=== PATIENT | female | born 1970 | race Two or more races ===

== ENCOUNTER 2022-01-12 08:19 | Emergency (ER) | payer OTHER ==
[~2022-01-12] VITALS: Ht 170.2 cm; Wt 85.3 kg
== END 2022-01-12 16:21 | disposition home or self-care (01) ==
LOC: ER 08:19
DX: I82.432 Acute embolism and thrombosis of left popliteal vein (principal); I82.412 Acute embolism and thrombosis of left femoral vein

== ENCOUNTER 2024-10-08 21:55 | Emergency (ER) | payer OTHER ==
[~2024-10-08] VITALS: Ht 167.6 cm; Wt 74.8 kg
[2024-10-08] MEDS ORDERED: TRIAMCINOLONE ACETONIDE 40 MG/ML VIAL IM ONE (22:00)
[2024-10-08] MEDS ORDERED: KETOROLAC TROMETHAMINE 60 MG VIAL IM ONE ×2 (22:00→22:10)
[2024-10-08] MEDS ORDERED: TRIAMCINOLONE ACETONIDE 40 MG/ML VIAL ONE (22:09)
[2024-10-08] MEDS ORDERED: TRAMADOL HCL 50 MG TABLET PO ONE (22:15)
[2024-10-08] MEDS ORDERED: DICLOFENAC SODI75 MG PO (22:48)
[2024-10-08] MEDS ORDERED: NORFLEX100MG PO (22:48)
[2024-10-08 23:30] VITALS: BP 130/80; O2SAT 99
== END 2024-10-08 23:32 | disposition home or self-care (01) ==
LOC: ER 21:55
DX: M54.89 Other dorsalgia (principal); M51.369 Other intervertebral disc degeneration, lumbar region without mention of lumbar back pain or lower extremity pain; Z88.2 Allergy status to sulfonamides; Z88.8 Allergy status to other drugs, medicaments and biological substances